=== PATIENT | female | born 1995 | race Caucasian/White ===

== ENCOUNTER 2020-04-07 04:00 | Emergency (ER) | payer OTHER ==
[~2020-04-07] VITALS: Ht 160 cm; Wt 63.0 kg
[2020-04-07 04:40] LABS: BASOPHILS % (AUTO) 0 % (0-10); EOSINOPHILS # (AUTO) 0.1 10^3/uL (0.0-0.3); EOSINOPHILS % (AUTO) 0 % (0-10); HEMATOCRIT 38 % (35-52); HEMOGLOBIN 12.5 G/DL (11.5-16.0); LYMPHOCYTES # (AUTO) 1.3 X 10^3 (1.0-4.0); LYMPHOCYTES % (AUTO) 9 % (12-44); MEAN CORPUSCULAR HEMOGLOBIN 30 PG (25-34); MEAN CORPUSCULAR HGB CONC 33 G/DL (32-36); MEAN CORPUSCULAR VOLUME 90 FL (80-99); MEAN PLATELET VOLUME 10.4 FL (7.4-10.4); MONOCYTES # (AUTO) 0.7 X 10^3 (0.0-1.0); MONOCYTES % (AUTO) 5 % (0-12); NEUTROPHILS # (AUTO) 12.3 X 10^3 (1.8-7.8); NEUTROPHILS % (AUTO) 85 % (42-75); PLATELET COUNT 264 10^3/uL (130-400); RED CELL DISTRIBUTION WIDTH 11.9 % (10.0-14.5); WHITE BLOOD COUNT 14.4 10^3/uL (4.3-11.0)
[2020-04-07 04:41] LABS: BILIRUBIN,URINE NEGATIVE (NEGATIVE); CLARITY,URINE CLEAR; COLOR,URINE YELLOW; GLUCOSE, URINE (UA) NEGATIVE (NEGATIVE); KETONES,URINE NEGATIVE (NEGATIVE); LEUKOCYTE ESTERASE ,URINE NEGATIVE (NEGATIVE); NITRITE,URINE NEGATIVE (NEGATIVE); PROTEIN,URINE NEGATIVE (NEGATIVE)
[2020-04-07 04:48] LABS: BACTERIA,URINE TRACE /HPF
[2020-04-07 04:51] LABS: ALBUMIN 4.3 GM/DL (3.2-4.5); CHLORIDE 105 MMOL/L (98-107); POTASSIUM 3.4 MMOL/L (3.6-5.0); SODIUM 137 MMOL/L (135-145)
[2020-04-07 04:52] LABS: CALCIUM 9.3 MG/DL (8.5-10.1)
[2020-04-07 04:54] LABS: GLUCOSE 94 MG/DL (70-105); TOTAL PROTEIN 7.1 GM/DL (6.4-8.2)
[2020-04-07 04:55] LABS: BILIRUBIN,TOTAL 0.5 MG/DL (0.1-1.0); CARBON DIOXIDE 21 MMOL/L (21-32)
[2020-04-07 04:57] LABS: ALKALINE PHOSPHATASE 62 U/L (40-136); CREATININE SERUM 0.73 MG/DL (0.60-1.30); GFR ESTIMATED > 60
[2020-04-07 04:59] LABS: BUN/CREATININE RATIO 14
[2020-04-07 05:00] LABS: ALANINE AMINOTRANSFERASE 13 U/L (0-55)
--- NOTE | 2020-04-07 05:51 | ED Abdominal Pain ---
General Chief Complaint: Abdominal/GI Problems Stated Complaint: RLQ PAIN Nursing Triage Note: RLQ ABDOMINAL PAIN Sepsis Screen: No Definite Risk Source of Information: Patient Exam Limitations: No Limitations (POLA RODRIGUEZ MED STUDENT) History of Present Illness Date Seen by Provider: Apr 07, 2020 Time Seen by Provider: 04:08 Initial Comments Mrs. Steiner is a 24 year old female who presented to the emergency department with complaints of right lower quadrant abdominal pain that began around 01:15 this morning, about 3 hours before arrival and was sharp at that time. She states she was sleeping and woke up to RLQ pain that is improving. She complains of right sided chest pain at that time but states it was likely her anxiety. She proceeded to shower to help alleviate the pain with no relief. She describes the pain as a dull pain in the RLQ with no radiation. She denies any urinary symptoms, vaginal discharge/irritation, or vomiting. She does admit to some nausea. Her last bowel movement was yesterday and soft. LMP began 04/02/20. She states she had similar pain previously and was diagnosed with a kidney stone in 2016, she was treated with IV fluids and passed the stone with no intervention. She also has a personal history of ovarian cysts 5-6 years ago. She states she does not have a PCP in the area as she usually is seen in the [facility] at [facility]. Timing/Duration: 1-3 Hours Severity/Quality: Moderate, Dull Location: RLQ Radiation: No Radiation Activities at Onset: Sleeping Associated Symptoms: Fever/Chills (chills); No Headache; Nausea/Vomiting (nausea); No Shortness of Air (POLA RODRIGUEZ MED STUDENT) Allergies and Home Medications Allergies Coded Allergies: No Known Drug Allergies (Unverified , 04/07/20) Home Medications No Active Prescriptions or Reported Meds Patient Home Medication List Home Medication List Reviewed: Yes (POLA RODRIGUEZ MED STUDENT) Review of Systems Review of Systems Constitutional: chills; No fever EENTM: No Symptoms Reported Respiratory: No Symptoms Reported Cardiovascular: Chest Pain Gastrointestinal: Abdominal Pain; Denies Constipated, Denies Diarrhea; Nausea; Denies Vomiting Genitourinary: No Symptoms Reported Musculoskeletal: no symptoms reported Skin: no symptoms reported Psychiatric/Neurological: No Symptoms Reported Endocrine: No Symptoms Reported (POLA RODRIGUEZ MED STUDENT) Past Ayoucxg-Qtvwwi-Owrejl Hx Patient Social History Alcohol Use: Rarely Uses Recreational Drug Use: No Smoking Status: Never a Smoker 2nd Hand Smoke Exposure: No Recent Foreign Travel: No Contact w/Someone Who Travel: No Recent Infectious Disease Expo: No Recent Hopitalizations: No Physical Abuse: No Sexual Abuse: No Mistreated: No Fear: No (POLA RODRIGUEZ MED STUDENT) Immunizations Up To Date Tetanus Booster (TDap): Unknown (POLA RODRIGUEZ MED STUDENT) Seasonal Allergies Seasonal Allergies: No (POLA RODRIGUEZ MED STUDENT) Past Medical History Surgeries: Yes Tonsillectomy Respiratory: No Cardiac: No Neurological: No : No Last Menstrual Period: Apr 02, 2020 Reproductive Disorders: Yes (dysmenorrhea, ovarian cyst) Genitourinary: No Gastrointestinal: No Musculoskeletal: No Endocrine: No HEENT: No Cancer: No Psychosocial: No Integumentary: No Blood Disorders: No (POLA RODRGIUEZ MED STUDENT) Physical Exam Vital Signs Vital Signs - First Documented 04/07/20 04:05 Temp 36.6 Pulse 113 Resp 18 B/P (MAP) 118/86 (97) Pulse Ox 99 O2 Delivery Room Air (SAUD MAKI MD) Vital Signs Capillary Refill : Less Than 3 Seconds (POLA RODRIGUEZ MED STUDENT) Height/Weight/BMI Height: '" Weight: lbs. oz. kg; 24.00 BMI Method: General Appearance: WD/WN, no apparent distress Respiratory: chest non-tender, lungs clear, normal breath sounds, no respiratory distress, no accessory muscle use Cardiovascular: regular rate, rhythm, no murmur Peripheral Pulses: 2+ Radial Pulses (R), 2+ Radial Pulses (L) Gastrointestinal: normal bowel sounds, soft, no organomegaly; No guarding, No rebound; tenderness (mild at RLQ and suprapubic), other (negative heel tap, negative rovsing, negative straight lef test, mildly positve psoas/iliopsoas sign) Extremities: normal range of motion Neurologic/Psychiatric: alert, normal mood/affect, oriented x 3 Skin: normal color, warm/dry (POLA RODRIGUEZ MED STUDENT) Progress/Results/Core Measures Results/Orders Lab Results Laboratory Tests Test 04/07/20 04:15 04/07/20 04:35 Range/Units Urine Color YELLOW Urine Clarity CLEAR Urine pH 6.0 5-9 Urine Specific [place] 1.020 1.016-1.022 Urine Protein NEGATIVE NEGATIVE Urine Glucose (UA) NEGATIVE NEGATIVE Urine Ketones NEGATIVE NEGATIVE Urine Nitrite NEGATIVE NEGATIVE Urine Bilirubin NEGATIVE NEGATIVE Urine Urobilinogen 0.2 < = 1.0 MG/DL Urine Leukocyte Esterase NEGATIVE NEGATIVE Urine RBC (Auto) 1+ H NEGATIVE Urine RBC NONE /HPF Urine WBC NONE /HPF Urine Squamous Epithelial Cells 5-10 /HPF Urine Crystals NONE /LPF Urine Bacteria TRACE /HPF Urine Casts NONE /LPF Urine Mucus NEGATIVE /LPF Urine Culture Indicated NO White Blood Count 14.4 H 4.3-11.0 10^3/uL Red Blood Count 4.19 L 4.35-5.85 10^6/uL Hemoglobin 12.5 11.5-16.0 G/DL Hematocrit 38 35-52 % Mean Corpuscular Volume 90 80-99 FL Mean Corpuscular Hemoglobin 30 25-34 PG Mean Corpuscular Hemoglobin Concent 33 32-36 G/DL Red Cell Distribution Width 11.9 10.0-14.5 % Platelet Count 264 130-400 10^3/uL Mean Platelet Volume 10.4 7.4-10.4 FL Neutrophils (%) (Auto) 85 H 42-75 % Lymphocytes (%) (Auto) 9 L 12-44 % Monocytes (%) (Auto) 5 0-12 % Eosinophils (%) (Auto) 0 0-10 % Basophils (%) (Auto) 0 0-10 % Neutrophils # (Auto) 12.3 H 1.8-7.8 X 10^3 Lymphocytes # (Auto) 1.3 1.0-4.0 X 10^3 Monocytes # (Auto) 0.7 0.0-1.0 X 10^3 Eosinophils # (Auto) 0.1 0.0-0.3 10^3/uL Basophils # (Auto) 0.0 0.0-0.1 10^3/uL Sodium Level 137 135-145 MMOL/L Potassium Level 3.4 L 3.6-5.0 MMOL/L Chloride Level 105 98-107 MMOL/L Carbon Dioxide Level 21 21-32 MMOL/L Anion Gap 11 5-14 MMOL/L Blood Urea Nitrogen 10 7-18 MG/DL Creatinine 0.73 0.60-1.30 MG/DL Estimat Glomerular Filtration Rate > 60 BUN/Creatinine Ratio 14 Glucose Level 94 70-105 MG/DL Calcium Level 9.3 8.5-10.1 MG/DL Corrected Calcium 9.1 8.5-10.1 MG/DL Total Bilirubin 0.5 0.1-1.0 MG/DL Aspartate Amino Transf (AST/SGOT) 23 5-34 U/L Alanine Aminotransferase (ALT/SGPT) 13 0-55 U/L Alkaline Phosphatase 62 40-136 U/L C-Reactive Protein High Sensitivity 0.14 0.00-0.50 MG/DL Total Protein 7.1 6.4-8.2 GM/DL Albumin 4.3 3.2-4.5 GM/DL Serum Test, Qualitative NEGATIVE NEGATIVE (SAUD MAKI MD) My Orders Orders - SAUD MAKI MD Ua Culture If Indicated (04/07/20 04:24) Cbc With Automated Diff (04/07/20 04:28) Comprehensive Metabolic Panel (04/07/20 04:28) Hs C Reactive Protein (04/07/20 04:28) Hcg,Qualitative Serum (04/07/20 04:28) Ed Iv/Invasive Line Start (04/07/20 04:28) (SAUD MAKI MD) Vital Signs/I&O 04/07/20 04/07/20 04:05 06:34 Temp 36.6 36.5 Pulse 113 98 Resp 18 16 B/P (MAP) 118/86 (97) 108/75 (97) Pulse Ox 99 100 O2 Delivery Room Air Room Air (SAUD MAKI MD) Blood Pressure Mean: 97 Progress Progress Note : Progress Note Patient's pain seemed to be improving without interventions. Her pain started abruptly and gradually was decreasing. Physical exam showed minimal peritoneal signs. We discussed the risks and benefits of CT scan. Patient wishes to wait and observe her symptoms closely. She commits to returning if symptoms worsen. (SAUD MAKI MD) Departure Impression Primary Impression: Right lower quadrant pain Additional Impression: Nausea Disposition: 01 HOME, SELF-CARE Condition: Improved Departure-Patient Inst. Decision time for Depature: 06:08 (SAUD MAKI MD) Referrals: NO,LOCAL PHYSICIAN (PCP/Family) Primary Care Physician Patient Instructions: Acute Abdomen (Belly Pain), Adult (DC) Add. Discharge Instructions: Start with clear liquids and gradually advance your diet as tolerated. You may use ibuprofen and/or Tylenol (acetaminophen) for pain. Return to the emergency room if you have escalating pain or other worsening symptoms such as vomiting, fever, etc. Call if you have questions or concerns. All discharge instructions reviewed with patient and/or family. Voiced understanding. Scripts No Active Prescriptions or Reported Meds This patient was interviewed and examined by me personally along with Pola Rodriguez MS4. I agree with MS 4 history, physical, assessment, and documentation. My examination is as follows: Gen.: Alert, no acute distress, walks gingerly from the restroom to the exam ta ble HEENT: Normocephalic and atraumatic Heart: Regular rate and rhythm without murmur Lungs: Clear to auscultation bilaterally with normal effort Abdomen: Mild tenderness in the right lower quadrant, negative Rovsing, negative rebound Extremities: Normal to inspection Neuro psych: Alert, oriented, no focal deficits, normal mood and affect Risks and benefits of CT imaging to evaluate for appendicitis or other intra- abdominal or pelvic pathology was discussed. Since patient is improving and symptoms are not as intense at this time, she would like to observe watchful waiting at home. Return precautions discussed. (SAUD MAKI MD) Copy Copies To 1: REE DAMON MD, [place],MED STUDENT Apr 07, 2020 05:51 SAUD MAKI MD Apr 07, 2020 06:09
[2020-04-07 06:34] VITALS: BP 108/75
== END 2020-04-07 06:36 | disposition home or self-care (01) ==
LOC: ER 04:03
DX: R10.31 Right lower quadrant pain (principal); R11.0 Nausea
CPT/HCPCS: 36415; 80053; 81000; 84703; 85025; 86141

== ENCOUNTER 2021-08-26 04:12 | Day surgery (SDC) | payer BC, OTHER ==
[2021-08-26] VITALS (10 sets, daily range): BP systolic 100–112; BP diastolic 60–79
[~2021-08-26] VITALS: Ht 160 cm; Wt 59.0 kg
[2021-08-26 04:33] LABS: BILIRUBIN,URINE NEGATIVE (NEGATIVE); CLARITY,URINE CLEAR; COLOR,URINE YELLOW; GLUCOSE, URINE (UA) NEGATIVE (NEGATIVE); KETONES,URINE NEGATIVE (NEGATIVE); LEUKOCYTE ESTERASE ,URINE NEGATIVE (NEGATIVE); NITRITE,URINE NEGATIVE (NEGATIVE); PROTEIN,URINE NEGATIVE (NEGATIVE)
--- NOTE | 2021-08-26 04:36 | ED Abdominal Pain ---
General Chief Complaint: Abdominal/GI Problems Stated Complaint: RT SIDE PAIN Source of Information: Patient History of Present Illness Date Seen by Provider: Aug 26, 2021 Time Seen by Provider: 04:25 Initial Comments PT ARRIVES VIA POV FROM HOME PT STATES AROUND 2130 TONIGHT, WHILE SITTING AT HER DESK, SHE BEGAN HAVING RIGHT LOWER ABDOMINAL PAIN THEN PAIN WENT UP HER RIGHT SIDE, THEN TO MID LOWER ABDOMEN, THEN ALL OVER HER ABDOMEN AND NOW IS ON HER RIGHT SIDE UNDER HER RIGHT RIBS AND IN RLQ NOTHING WORSENS OR IMPROVES PAIN,BUT HAS NOT TAKEN ANYTHING FOR PAIN RATES PAIN 8-9 EARLIER, IS 5-6 NOW MILD NAUSEA, NO VOMITING HAD NORMAL BM AT 10 AM YESTERDAY NO FEVER NO URINARY SYMPTOMS HAS HISTORY OF KIDNEY STONES AND OVARIAN CYSTS NO PRIOR SURGERIES LMP 1 WEEK AGO. NORMAL. NO CONTROL PT HAS NOT RECEIVED COVID-19 VACCINE PCP: NONE Allergies and Home Medications Allergies Coded Allergies: No Known Drug Allergies (Unverified , 04/07/20) Patient Home Medication List No Active Prescriptions or Reported Meds Review of Systems Review of Systems Constitutional: no symptoms reported Respiratory: No Symptoms Reported Cardiovascular: No Symptoms Reported Gastrointestinal: See HPI, Abdominal Pain; Denies Constipated, Denies Diarrhea; Nausea; Denies Vomiting Genitourinary: No Symptoms Reported Musculoskeletal: no symptoms reported; No back pain Skin: no symptoms reported Psychiatric/Neurological: No Symptoms Reported Endocrine: No Symptoms Reported Hematologic/Lymphatic: No Symptoms Reported Past Jtghiyz-Agdnfg-Yiicrg Hx Patient Social History Tobacco Use?: No Substance use?: No Alcohol Use?: No Immunizations Up To Date Tetanus Booster (TDap): Unknown Seasonal Allergies Seasonal Allergies: No Past Medical History Surgeries: Yes Tonsillectomy Respiratory: No Cardiac: No Neurological: No Reproductive Disorders: Yes (dysmenorrhea, ovarian cyst) Female Reproductive Disorders: Menstrual Problems, Ovarian Cyst Genitourinary: Yes Kidney Stones Gastrointestinal: No Musculoskeletal: No Endocrine: No HEENT: No Cancer: No Psychosocial: No Integumentary: No Blood Disorders: No Physical Exam Vital Signs Vital Signs - First Documented 08/26/21 04:25 Temp 36.8 Pulse 130 Resp 16 B/P (MAP) 119/81 (94) Pulse Ox 99 O2 Delivery Room Air Capillary Refill : Height/Weight/BMI Height: '" Weight: lbs. oz. kg; 24.00 BMI Method: General Appearance: WD/WN, no apparent distress, other (WALKS UPRIGHT AND MOVES WITHOUT DIFFICULTY) Neck: normal inspection Respiratory: normal breath sounds, no respiratory distress, no accessory muscle use Cardiovascular: no murmur, tachycardia (HR 130 ON ARRIVAL) Gastrointestinal: normal bowel sounds, soft, no organomegaly, no pulsatile mass; No distended, No guarding, No rebound; tenderness (VERY SLIGHT TENDERNESS IN RLQ AND SUPRAPUBIC AREA); No hernia, No mass Extremities: normal inspection Back: normal inspection, no CVA tenderness Neurologic/Psychiatric: medical pathologist II-XII nml as tested, no motor/sensory deficits, alert, normal mood/affect, oriented x 3 Skin: normal color, warm/dry; No rash Progress/Results/Core Measures Results/Orders Lab Results Laboratory Tests Test 08/26/21 04:25 08/26/21 04:35 Range/Units Urine Color YELLOW Urine Clarity CLEAR Urine pH 7.0 5-9 Urine Specific [place] 1.020 1.016-1.022 Urine Protein NEGATIVE NEGATIVE Urine Glucose (UA) NEGATIVE NEGATIVE Urine Ketones NEGATIVE NEGATIVE Urine Nitrite NEGATIVE NEGATIVE Urine Bilirubin NEGATIVE NEGATIVE Urine Urobilinogen 0.2 < = 1.0 MG/DL Urine Leukocyte Esterase NEGATIVE NEGATIVE Urine RBC (Auto) TRACE-I H NEGATIVE Urine RBC NONE /HPF Urine WBC NONE /HPF Urine Squamous Epithelial Cells 2-5 /HPF Urine Crystals NONE /LPF Urine Bacteria NEGATIVE /HPF Urine Casts NONE /LPF Urine Mucus SMALL H /LPF Urine Culture Indicated NO White Blood Count 12.1 H 4.3-11.0 10^3/uL Red Blood Count 4.34 3.80-5.11 10^6/uL Hemoglobin 12.9 11.5-16.0 g/dL Hematocrit 39 35-52 % Mean Corpuscular Volume 90 80-99 fL Mean Corpuscular Hemoglobin 30 25-34 pg Mean Corpuscular Hemoglobin Concent 33 32-36 g/dL Red Cell Distribution Width 11.6 10.0-14.5 % Platelet Count 294 130-400 10^3/uL Mean Platelet Volume 10.6 9.0-12.2 fL Immature Granulocyte % (Auto) 0 % Neutrophils (%) (Auto) 75 42-75 % Lymphocytes (%) (Auto) 19 12-44 % Monocytes (%) (Auto) 5 0-12 % Eosinophils (%) (Auto) 1 0-10 % Basophils (%) (Auto) 0 0-10 % Neutrophils # (Auto) 9.0 H 1.8-7.8 10^3/uL Lymphocytes # (Auto) 2.3 1.0-4.0 10^3/uL Monocytes # (Auto) 0.6 0.0-1.0 10^3/uL Eosinophils # (Auto) 0.1 0.0-0.3 10^3/uL Basophils # (Auto) 0.0 0.0-0.1 10^3/uL Immature Granulocyte # (Auto) 0.0 0.0-0.1 10^3/uL Sodium Level 140 135-145 MMOL/L Potassium Level 3.5 L 3.6-5.0 MMOL/L Chloride Level 105 98-107 MMOL/L Carbon Dioxide Level 22 21-32 MMOL/L Anion Gap 13 5-14 MMOL/L Blood Urea Nitrogen 10 7-18 MG/DL Creatinine 0.74 0.60-1.30 MG/DL Estimat Glomerular Filtration Rate 96 BUN/Creatinine Ratio 14 Glucose Level 103 70-105 MG/DL Calcium Level 9.1 8.5-10.1 MG/DL Corrected Calcium 8.9 8.5-10.1 MG/DL Total Bilirubin 0.9 0.1-1.0 MG/DL Aspartate Amino Transf (AST/SGOT) 19 5-34 U/L Alanine Aminotransferase (ALT/SGPT) 9 0-55 U/L Alkaline Phosphatase 63 40-136 U/L Total Protein 7.3 6.4-8.2 GM/DL Albumin 4.3 3.2-4.5 GM/DL My Orders Orders - LONA WADSWORTH DO Ed Iv/Invasive Line Start (08/26/21 04:24) Urine Bedside (08/26/21 04:24) Cbc With Automated Diff (08/26/21 04:24) Comprehensive Metabolic Panel (08/26/21 04:24) Ua Culture If Indicated (08/26/21 04:24) Ct Abd/Pelvis Wo(Kidney Stone) (08/26/21 04:45) Abdomen/Kub 1view (08/26/21 04:45) Vital Signs/I&O 08/26/21 04:25 Temp 36.8 Pulse 130 Resp 16 B/P (MAP) 119/81 (94) Pulse Ox 99 O2 Delivery Room Air Progress Progress Note : Progress Note HR DOWN TO 80'S SHORTLY AFTER ARRIVAL UNEVENTFUL ER STAY. LAST FOOD INTAKE--1615 YESTERDAY AFTERNOON. HAD 20 OZ OF WATER AT 2200 ON 08/25/21 Diagnostic Imaging Comments KUB--NO ACUTE PROCESS, PENDING RADIOLOGIST REVIEW CT ABDOMEN/PELVIS--PER [facility] VIA FAX AT 5622 ENLARGED APPENDIX AT 8MM DIAMETER, WITH MILD SURROUNDING INFLAMMATORY STRANDING--SUSPICIOUS FOR EARLY APPENDICITIS Reviewed: Reviewed by Me Departure Communication (Admissions) [id number]--SPOKE WITH DR. CHAPA, SURGEON. WILL BE IN TO SEE PT. Impression Primary Impression: RLQ PAIN--EARLY APPENDICITIS Disposition: ADMITTED INPATIENT Condition: Stable Admissions Decision to Admit Reason: Admit from ER (General) Decision to Admit/Date: Aug 26, 2021 Time/Decision to Admit Time: 05:50 Departure-Patient Inst. Referrals: NO,LOCAL PHYSICIAN (PCP/Family) Primary Care Physician Scripts No Active Prescriptions or Reported Meds LONA WADSWORTH DO Aug 26, 2021 04:36
[2021-08-26 04:41] LABS: BACTERIA,URINE NEGATIVE /HPF
[2021-08-26 04:44] LABS: BASOPHILS % (AUTO) 0 % (0-10); EOSINOPHILS # (AUTO) 0.1 10^3/uL (0.0-0.3); EOSINOPHILS % (AUTO) 1 % (0-10); HEMATOCRIT 39 % (35-52); HEMOGLOBIN 12.9 g/dL (11.5-16.0); LYMPHOCYTES # (AUTO) 2.3 10^3/uL (1.0-4.0); LYMPHOCYTES % (AUTO) 19 % (12-44); MEAN CORPUSCULAR HEMOGLOBIN 30 pg (25-34); MEAN CORPUSCULAR HGB CONC 33 g/dL (32-36); MEAN CORPUSCULAR VOLUME 90 fL (80-99); MEAN PLATELET VOLUME 10.6 fL (9.0-12.2); MONOCYTES # (AUTO) 0.6 10^3/uL (0.0-1.0); MONOCYTES % (AUTO) 5 % (0-12); NEUTROPHILS % (AUTO) 75 % (42-75); PLATELET COUNT 294 10^3/uL (130-400); WHITE BLOOD COUNT 12.1 10^3/uL (4.3-11.0)
[2021-08-26 05:07] LABS: ALBUMIN 4.3 GM/DL (3.2-4.5); BILIRUBIN,TOTAL 0.9 MG/DL (0.1-1.0); CALCIUM 9.1 MG/DL (8.5-10.1); CREATININE SERUM 0.74 MG/DL (0.60-1.30); POTASSIUM 3.5 MMOL/L (3.6-5.0); TOTAL PROTEIN 7.3 GM/DL (6.4-8.2)
--- NOTE | 2021-08-26 05:54 | Diagnostic Imaging Report ---
ABDOMEN/KUB 1VIEW INDICATION: Abdominal pain COMPARISON: None available. TECHNIQUE: Single supine view of the abdomen FINDINGS: Nonobstructive bowel gas pattern. No features of free intraperitoneal air. No radiopaque urinary tract calculi are appreciated. Normal regional skeleton. IMPRESSION: No abnormality by radiography. Dictated by: Dictated on workstation # [id number]
--- NOTE | 2021-08-26 05:57 | Diagnostic Imaging Report ---
CT ABD/PELVIS WO(KIDNEY STONE) TECHNIQUE: Unenhanced CT imaging of the abdomen and pelvis was performed. 2-D reformats are created and submitted for interpretation. Automatic exposure controls were utilized to optimize patient dose. INDICATION: Flank pain COMPARISON: None available. FINDINGS: Evaluation of the abdominal viscera is mildly limited without contrast. Lower chest: The lung bases are clear. No pericardial or pleural effusion. Peritoneum: No free intraperitoneal air or fluid. Liver and biliary system: Unenhanced liver is normal. The gallbladder is normal. No biliary duct dilation. Spleen and Pancreas: Spleen is normal. Unenhanced pancreas is grossly normal. Adrenals: Normal. tract: No renal or ureteral calculi. No obstructive uropathy. Urinary bladder is decompressed. Uterus and ovaries are unremarkable. GI tract: Stomach is partially filled with fluid. No bowel obstruction. No pericolonic inflammatory changes. Dilated appendix measuring 8 mm has a small amount of surrounding induration in the periappendiceal fat. No abscess. Vasculature and Lymph nodes: Normal caliber aorta. No abdominal or pelvic lymphadenopathy. Musculoskeletal: No concerning osseous lesion. IMPRESSION: 1. Acute appendicitis without perforation or abscess. 2. No urinary tract calculi. 3. Findings are in agreement with the preliminary report. Dictated by: Dictated on workstation # [id number]
[2021-08-26] MEDS ORDERED: LACTATED RINGERS 1,000 ML IV ONE (06:00)
[2021-08-26] MEDS ORDERED: fentaNYL INJ 100 MCG/2 ML AMP ONE (06:53)
[2021-08-26] MEDS ORDERED: MIDAZOLAM 2 MG/2 ML (VERSED) VIAL ONE (06:53)
[2021-08-26] MEDS ORDERED: LACTATED RINGERS 1,000 ML IV PRN (07:00)
[2021-08-26] MEDS ORDERED: LIDOCAINE/EPI 1%-1:100,000 (XYLOCAINE) 20ML ONE (07:04)
--- NOTE | 2021-08-26 07:14 | History & Physical-Surgical ---
History of Present Illness History of Present Illness Reason for visit/HPI CC: RLQ abd pain Seen and evaluated in ED. Patient is a 26 year old female that began having rlq abd pain aobut 930 last night. Constant dull ache now. Moderate to severe. No radiation of pain. Having nausea no emesis. Movement makes worse. Laying still better. Denies fever sweats chills shortness of breath or chest pain. Patient with ct scan consistent with acute appendicitis. Date of Admission T Date Seen by a Provider: Aug 26, 2021 Time Seen by a Provider: 06:48 I consulted on this patient on 08/26/21 07:09 Attending Physician Hayley Barragan DO Admitting Physician No,Local Physician Consult Allergies and Home Medications Allergies Coded Allergies: No Known Drug Allergies (Unverified , 04/07/20) Patient Home Medication List Home Medication List Reviewed: Yes No Active Prescriptions or Reported Meds Past Kvxomhx-Eqtqgg-Gzgqdq Hx Patient Social History Smoking Status: Never a Smoker 2nd Hand Smoke Exposure: No Recent Hopitalizations: No Alcohol Use?: No Have you traveled recently?: No Immunizations Up To Date Tetanus Booster (TDap): Unknown Seasonal Allergies Seasonal Allergies: No Surgeries History of Surgeries: Yes Surgeries: Tonsillectomy Respiratory History of Respiratory Disorde: No Cardiovascular History of Cardiac Disorders: No Neurological History of Neurological Disord: No Reproductive System Hx Reproductive Disorders: Yes (dysmenorrhea, ovarian cyst) Female Reproductive Disorders: Menstrual Problems, Ovarian Cyst Genitourinary History of Genitourinary Disor: Yes Genitourinary Disorders: Kidney Stones Gastrointestinal History of Gastrointestinal Di: No Musculoskeletal History of Musculoskeletal Dis: No Endocrine History of Endocrine Disorders: No HEENT History of HEENT Disorders: No Cancer History of Cancer: No Psychosocial History of Psychiatric Problem: No Integumentary History of Skin or Integumenta: No Blood Transfusions History of Blood Disorders: No Reviewed Nursing Assessment Reviewed/Agree w Nursing PMH: Yes Family Medical History Significant Family History: No Pertinent Family Hx Review of Systems Constitutional: No chills, No diaphoresis EENTM: No blurred vision, No mouth swelling Respiratory: No cough, No dyspnea on exertion Cardiovascular: No chest pain, No palpitations Gastrointestinal: abdominal pain (RLQ), nausea Genitourinary: No dysuria, No frequency Musculoskeletal: No back pain, No joint pain Skin: No change in color, No change in hair/nails Psychiatric/Neurological: Denies Anxiety, Denies Depressed, Denies Emotional Problems All Other Systems Reviewed Negative Unless Noted: Yes (Negative excepted noted.) Physical Exam Vital Signs Vital Signs - First Documented 08/26/21 04:25 Temp 36.8 Pulse 130 Resp 16 B/P (MAP) 119/81 (94) Pulse Ox 99 O2 Delivery Room Air Capillary Refill : Less Than 3 Seconds Height, Weight, BMI Height: '" Weight: lbs. oz. kg; 23.00 BMI Method: General Appearance: No Apparent Distress, WD/WN HEENT: PERRL/EOMI, Normal ENT Inspection Neck: Normal Inspection, Non Tender Respiratory: Chest Non Tender, No Accessory Muscle Use, No Respiratory Distress Cardiovascular: Regular Rate, Rhythm, No JVD Gastrointestinal: Non Tender, Soft, Tenderness (rlq) Rectal: Deferred Back: No CVA Tenderness, No Vertebral Tenderness Extremity: Normal Inspection, Non Tender Neurologic/Psychiatric: Alert, Oriented x3, No Motor/Sensory Deficits, Normal Mood/Affect Skin: Normal Color, Warm/Dry Lymphatic: No Adenopathy Data Review Labs Laboratory Tests 08/26/21 04:25: Urine Color YELLOW, Urine Clarity CLEAR, Urine pH 7.0, Urine Specific [place] 1.020, Urine Protein NEGATIVE, Urine Glucose (UA) NEGATIVE, Urine Ketones NEGATIVE, Urine Nitrite NEGATIVE, Urine Bilirubin NEGATIVE, Urine Urobilinogen 0.2, Urine Leukocyte Esterase NEGATIVE, Urine RBC (Auto) TRACE-IH, Urine RBC NONE, Urine WBC NONE, Urine Squamous Epithelial Cells 2-5, Urine Crystals NONE, Urine Bacteria NEGATIVE, Urine Casts NONE, Urine Mucus SMALLH, Urine Culture Indicated NO 08/26/21 04:35: White Blood Count 12.1H, Red Blood Count 4.34, Hemoglobin 12.9, Hematocrit 39, Mean Corpuscular Volume 90, Mean Corpuscular Hemoglobin 30, Mean Corpuscular Hemoglobin Concent 33, Red Cell Distribution Width 11.6, Platelet Count 294, Mean Platelet Volume 10.6, Immature Granulocyte % (Auto) 0, Neutrophils (%) (Auto) 75, Lymphocytes (%) (Auto) 19, Monocytes (%) (Auto) 5, Eosinophils (%) (Auto) 1, Basophils (%) (Auto) 0, Neutrophils # (Auto) 9.0H, Lymphocytes # (Auto) 2.3, Monocytes # (Auto) 0.6, Eosinophils # (Auto) 0.1, Basophils # (Auto) 0.0, Immature Granulocyte # (Auto) 0.0, Sodium Level 140, Potassium Level 3.5L, Chloride Level 105, Carbon Dioxide Level 22, Anion Gap 13, Blood Urea Nitrogen 10, Creatinine 0.74, Estimat Glomerular Filtration Rate 96, BUN/Creatinine Ratio 14, Glucose Level 103, Calcium Level 9.1, Corrected Calcium 8.9, Total Bilirubin 0.9, Aspartate Amino Transf (AST/SGOT) 19, Alanine Aminotransferase (ALT/SGPT) 9, Alkaline Phosphatase 63, Total Protein 7.3, Albumin 4.3 Assessment/Plan Assessment/Plan Admission Diagonsis rlq abdominal pain acute appendicitis Admission Status: Other (Same Day Surgery) Assessment/Plan rlq abdominal pain acute appendicitis discussed risks and benefits of laparoscopic appendectomy she understands and wishes to proceed. NPO to or HAYLEY BARRAGAN DO Aug 26, 2021 07:14
[2021-08-26] MEDS ORDERED: metroNIDAZOLE 500MG/100ML IVPB 100 ML ONE (07:25)
[2021-08-26] MEDS ORDERED: ceFAZolin INJECTION 1,000 MG ONE (07:25)
[2021-08-26] MEDS ORDERED: ceFAZolin INJECTION 1,000 MG in WATER (STERILE) FOR INJECTION 10 ML IV ONE (07:30)
[2021-08-26] MEDS ORDERED: metroNIDAZOLE 500MG/100ML IVPB 100 ML IV ONE (07:30)
[2021-08-26] MEDS ORDERED: LIDOCAINE PF 2% 5 ML (XYLOCAINE) VIAL ONE (07:40)
[2021-08-26] MEDS ORDERED: SEVOFLURANE (ULTANE) 15 ML INHAL SOLN ONE (07:40)
[2021-08-26] MEDS ORDERED: ROCURONIUM 10 MG/ML 5 ML SYRINGE IV ONE (07:40)
[2021-08-26] MEDS ORDERED: ONDANSETRON 4 MG/2 ML (SDV) Z0FRAN ONE (07:40)
[2021-08-26] MEDS ORDERED: NEOSTIGMINE 3 MG/3 ML VIAL ONE (07:50)
[2021-08-26] MEDS ORDERED: GLYCOPYRROLATE 0.2 MG/ML (ROBINUL) 2 ML VIAL ONE (07:50)
[2021-08-26] MEDS ORDERED: PHENYLEPHRINE 100 MCG/ML 10 ML (ANESTHESIA) SYR ONE (07:53)
[2021-08-26] MEDS ORDERED: KETOROLAC 30 MG/ML VIAL ONE ×2 (08:07→08:08)
[2021-08-26] MEDS ORDERED: DOCU-143 PO (08:10)
[2021-08-26] MEDS ORDERED: ACHD5005 PO (08:10)
--- NOTE | 2021-08-26 08:11 | Discharge Inst-Simple/Standard ---
Discharge Inst-Standard Discharge Medications New, Converted or Re-Newed RX: Transmitted to Pharmacy Patient Instructions/Follow Up Plan of Care/Instructions/FU: 2 weeks Yung Activity as Tolerated: No Discharge Diet: Regular Diet Other Inst to Patient Follow up Appt: Make appointment for 2 week. Instructions: No lifting greater than 10 pounds. No strenuous activity. May shower in 24 hours, no tub bath or soaking. Use incentive spirometer at home as directed. No Smoking Skin/Wound Care: You have special glue over your incision that will fall off on it's own. Symptoms to Report: Appetite Changes, Extremity Discoloration, Numbness/Tingling, Swelling Increased, Bleeding Excessive, Eyesight Changes, Pain Increased, Urine Color Change, Constipation(Persistent), Fever over 101 degree F, Pain/Pressure in chest, Urinating Difficulty, Cough Up/Vomit Blood, Heart Beat Irreg/Pounding, Pain/Pressure in jaw, Vaginal Bleeding Increase, Cramps in feet or legs, Lightheadedness, Pain/Pressure in shoulder, Diarrhea(Persistent), Memory Changes Suddenly, Questions/Concerns, Weight gain consecutive days, Dizziness/Fainting, Nausea/Vomiting, Shortness of Breath, Weight gain over 2 pounds If questions or concerns contact your physician Or seek help at emergency department. HAYLEY CHAPA DO Aug 26, 2021 08:11
--- NOTE | 2021-08-26 08:14 | Progress Note-Post Operative ---
Post-Operative Progess Note Surgeon (s)/Phone Technician (s) Surgeon HAYLEY CHAPA DO Phone Technician: na Pre-Operative Diagnosis acute appendicitis Post-Operative Diagnosis same Procedure & Operative Findings Date of Procedure 08/26/21 Procedure Performed/Findings 4PROCEDURE: Laparoscopic appendectomy. COMPLICATIONS: None. INDICATIONS: The patient is a 26 year old female who has been having right lower quadrant abdominal pain. Patient's exam consistent with appendicitis. I discussed risk and benefits of laparoscopic appendectomy and all indicated procedures with the possibility being a normal appendix. The patient understands the risks and benefits and wishes to proceed. Consent was signed on the chart. DESCRIPTION OF PROCEDURE: The patient was taken to the operating suite, prepped and draped in a sterile fashion. Timeout was performed. Local anesthetic was infiltrated just above the umbilicus and 11-blade scalpel was used to make a skin incision. Cautery was used to dissect down to the fascia and scored. Kochers were used to grasp and elevate it and the abdomen was then entered. A 0 Vicryl was placed in a [id number] fashion for closure at the end of the case. The balloon trocar was inserted into the abdomen and pneumoperitoneum was achieved. Under direct visualization of the laparoscope, a 5 mm trocar was placed in the suprapubic region and a 5 mm trocar was placed in the left lower quadrant. Appendix was located, Inflamed dilated appendix. The base of the appendix was dissected around. Once at the base an Endo-SRINI 2.5 stapler was then fired across the base of the appendix. The mesoappendix was then divided. It was then placed in an Endobag and removed through the 12 mm trocar site. The abdomen was then irrigated and suctioned. No other pathology noted. The abdomen was then desufflated and the trocars were removed. The 0 Vicryl placed at the beginning of the case was then tied closing the 12 mm fascial defect. The skin was then closed using 4-0 Monocryl in a subcuticular fashion. The abdomen was then washed and dried and Skin Affix was placed over the incisions. The patient tolerated the procedure well without any complications and was taken to the recovery room in stable condition. Anesthesia Type general Estimated Blood Loss Estimated blood loss (mL): minimal Specimens/Packing Specimens Removed appendix HAYLEY CHAPA DO Aug 26, 2021 08:14
[2021-08-26] MEDS ORDERED: ONDANSETRON 4 MG/2 ML (SDV) Z0FRAN IVP PRN (08:45)
[2021-08-26] MEDS ORDERED: HYDROmorphone 2 MG/ML VIAL (DILAUDID) IV ONE (08:45)
[2021-08-26] MEDS ORDERED: HYDROcodone/APAP 5 MG/325 MG (LORTAB) TAB PO ONE (09:30)
[2021-08-26] MEDS ORDERED: HYDROcodone/APAP 5 MG/325 MG (LORTAB) TAB ONE (09:33)
--- NOTE | 2021-08-26 12:56 | Anesthesia-General Post-Op ---
General Patient Condition Mental Status/LOC: Same as Preop Cardiovascular: Satisfactory Nausea/Vomiting: Absent Respiratory: Satisfactory Pain: Controlled Complications: Absent Post Op Complications Complications None Follow Up Care/Instructions Patient Instructions None needed. Anesthesia/Patient Condition Patient Condition Patient is doing well, no complaints, stable vital signs, no apparent adverse anesthesia problems. No complications reported per nursing. [place] home [place] [facility] [place]: Yes JAVI SANCHEZ CRNA Aug 26, 2021 12:56
== END 2021-08-26 11:05 | disposition home or self-care (01) ==
LOC: EDUNIT# 04:12 → ER 04:17 → SDC 05:59
PROVIDERS: ATTEND Surgery
DX: K35.80 Unspecified acute appendicitis (principal)
CPT/HCPCS: 36415; 74018; 74176; 80053; 81000; 84703; 85025

== ENCOUNTER 2022-04-14 19:49 | Emergency (ER) | payer BC ==
[~2022-04-14] VITALS: Ht 157.4 cm; Wt 63.5 kg
[~2022-04-14 19:49] MED LIST: ACHD5005 PO; DOCU-143 PO
--- NOTE | 2022-04-14 20:10 | ED Cough/URI ---
General Chief Complaint: COVID19 Suspect/Confirmed Stated Complaint: CONGESTION, HEADACHE Nursing Triage Note: c/o fever and chills with headache that started around 0900 this am, temp max was 99.0 Source: patient Exam Limitations: no limitations History of Present Illness Date Seen by Provider: Apr 14, 2022 Time Seen by Provider: 20:10 Allergies and Home Medications Allergies Coded Allergies: No Known Drug Allergies (Unverified , 04/07/20) Patient Home Medication List Docusate Sodium (Colace) 100 Mg Capsule, 100 MG PO BID Prescribed by: HAYLEY CHAPA on 08/26/21 0810 Hydrocodone/Acetaminophen (Hydrocodone-Acetamin 5-325 mg) 1 Each Tablet, 1 EACH PO Q4H PRN for PAIN-MODERATE (5-7) Prescribed by: HAYLEY CHAPA on 08/26/2110 Review of Systems Review of Systems Expected Date of Delivery: Nov 13, 2022 Past Ysifttw-Zojxbe-Ixapgf Hx Immunizations Up To Date Tetanus Booster (TDap): Unknown Seasonal Allergies Seasonal Allergies: No Past Medical History Surgery/Hospitalization HX: OVARIAN CYSTS KIDNEY STONES Surgeries: Yes Tonsillectomy Respiratory: No Cardiac: No Neurological: No Expected Date of Delivery: Nov 13, 2022 Reproductive Disorders: Yes (dysmenorrhea, ovarian cyst) Female Reproductive Disorders: Menstrual Problems, Ovarian Cyst Genitourinary: Yes Kidney Stones Gastrointestinal: No Musculoskeletal: No Endocrine: No HEENT: No Cancer: No Psychosocial: No Integumentary: No Blood Disorders: No Family Medical History No Pertinent Family Hx Physical Exam Vital Signs - First Documented 04/14/22 20:02 Temp 38.2 Pulse 114 Resp 18 B/P (MAP) 107/73 (84) Pulse Ox 100 O2 Delivery Room Air Capillary Refill : Height: '" Weight: lbs. oz. kg; 25.00 BMI Method: Progress/Results/Core Measures Suspected Sepsis SIRS Temperature: Pulse: 114 Respiratory Rate: 18 Blood Pressure 107 /73 Mean: 84 Results/Orders Lab Results Laboratory Tests Test 04/14/22 20:14 Range/Units Influenza Type A (RT-PCR) Not Detected Not Detecte Influenza Type B (RT-PCR) Not Detected Not Detecte SARS-CoV-2 RNA (RT-PCR) Detected H Not Detecte My Orders Orders - GEOVANNY REDMOND APRN Covid 19 Inhouse Test (04/14/22 19:55) Influenza A And B By Pcr (04/14/22 19:55) Ns Iv 1000 Ml (Sodium Chloride 0.9%) (04/14/22 20:30) Medications Given in ED Current Medications Medications Dose Ordered Sig/Scot Route Start Time Stop Time Status Last Admin Dose Admin Sodium Chloride 1,000 ml @ 0 mls/hr Q0M ONCE IV 04/14/22 20:30 04/14/22 20:31 DC 04/14/22 20:32 1,000 MLS/HR Vital Signs/I&O 04/14/22 20:02 Temp 38.2 Pulse 114 Resp 18 B/P (MAP) 107/73 (84) Pulse Ox 100 O2 Delivery Room Air Capillary Refill : Blood Pressure Mean: 84 Departure Impression Primary Impression: COVID-19 Disposition: 01 HOME, SELF-CARE Condition: Improved Departure-Patient Inst. Decision time for Depature: 21:06 Referrals: NO,LOCAL PHYSICIAN (PCP/Family) Primary Care Physician Patient Instructions: COVID-19 (DC) Add. Discharge Instructions: Plan: 1. Isolate at home for 5 days, then mask for additional 5 days. 2. Drink plenty of fluids to stay hydrated. 3. May take Tylenol as needed for fever. 4. Return for any new, concerning, or worsening symptoms. All discharge instructions reviewed with patient and/or family. Voiced understanding. GEOVANNY REDMOND [employer] Apr 14, 2022 20:10
[2022-04-14] MEDS ORDERED: NS IV 1000 ML 1,000 ML IV ONE (20:30)
[2022-04-14 21:23] VITALS: BP 106/61
== END 2022-04-14 21:25 | disposition home or self-care (01) ==
LOC: EDUNIT# 19:49 → ER 19:51
DX: U07.1 COVID-19 (principal)
CPT/HCPCS: 87636

== ENCOUNTER 2022-10-13 05:17 | Outpatient (CLI) | payer BC ==
[~2022-10-13] VITALS: Ht 160 cm; Wt 82.9 kg
[2022-10-13 05:44] VITALS: BP 131/83
[2022-10-13] MEDS ORDERED: FERR-84 PO (06:10)
[2022-10-13] MEDS ORDERED: PREN-142 PO (06:10)
[2022-10-13 06:32] LABS: BILIRUBIN,URINE NEGATIVE (NEGATIVE); CLARITY,URINE CLEAR; COLOR,URINE YELLOW; GLUCOSE, URINE (UA) NEGATIVE (NEGATIVE); KETONES,URINE NEGATIVE (NEGATIVE); LEUKOCYTE ESTERASE ,URINE TRACE (NEGATIVE); NITRITE,URINE NEGATIVE (NEGATIVE); PH,URINE 6.5 (5-9); PROTEIN,URINE NEGATIVE (NEGATIVE)
[2022-10-13 06:55] LABS: BACTERIA,URINE LARGE /HPF
[2022-10-13] MEDS ORDERED: D5 LR IV SOLUTION 1,000 ML IV SCH ×2 (07:15→10:15)
[2022-10-13 07:40] VITALS: BP 123/82
[2022-10-13 11:30] VITALS: BP 121/82
== END 2022-10-13 12:25 | disposition home or self-care (01) ==
LOC: WSo 05:17 → LDRP 05:18 → WSo 12:25
PROVIDERS: ATTEND Obstetrics & Gynecology
DX: O62.9 Abnormality of forces of labor, unspecified (principal); Z3A.00 Weeks of gestation of pregnancy not specified
CPT/HCPCS: 81000; 87081; 87088; 96360; 96361; G0463; 99214

== ENCOUNTER 2022-10-23 16:15 | Outpatient (CLI) | payer BC ==
[~2022-10-23] VITALS: Ht 160 cm; Wt 86.0 kg
[~2022-10-23 16:15] MED LIST changes: +FERR-84 PO; +PREN-142 PO
[2022-10-23 16:45] VITALS: BP 133/81
--- NOTE | 2022-10-27 08:22 | Physician Query-Final Dx ---
TIO,10/27/22 0822: Clinic Account Progress/Dx Physician Query: Please give diagnosis Please include # weeks gestation Date of Service Oct 23, 2022 at 16:15 KYLIE ESQUIVEL MD 10/28/22 1401: Clinic Account Progress/Dx DIAGNOSIS: Diagnosis 36 weeks with false labor TIO,OctOct 27, 2022 08:22 KYLIE ESQUIVEL MD Oct 28, 2022 14:01
== END 2022-10-23 17:23 | disposition home or self-care (01) ==
LOC: WSo 16:15 → LDRP 16:15 → WSo 17:23
PROVIDERS: ATTEND Obstetrics & Gynecology
DX: O42.92 Full-term premature rupture of membranes, unspecified as to length of time between rupture and onset of labor (principal); Z3A.37 37 weeks gestation of pregnancy
CPT/HCPCS: 99213

== ENCOUNTER → 2022-11-03 | Outpatient (CLI) | payer BC ==
--- NOTE | 2022-11-03 16:43 | Diagnostic Imaging Report ---
INDICATION: Evaluate growth. TECHNIQUE: Multiple real-time grayscale images were obtained over the gravid uterus. COMPARISON: None. FINDINGS: There is a single live fetus in a cephalic presentation. heart rate was recorded at 147 BPM. Placenta is anterior. No previa is detected. Amniotic fluid index is 12.5 cm. A biophysical profile was performed. Overall biophysical profile score is normal at 8/8. Biometrical measurements are as follows: Biparietal 9.84 cm, age 40 weeks 3 days. Head circumference 35.05 cm, age 40 weeks 6 days. Abdominal circumference 38.02 cm, age 42 weeks 0 days. Femur length 7.09 cm, age 36 weeks 3 days. Sonographic estimate age: 40 weeks 0 days. Sonographic estimated date of delivery: 11/03/2022. Estimated Weight: 4143 gm (+/- 605 gm). LMP percentile: 97%. heart rate: 147 beats per minute. number: 1 of 1. IMPRESSION: 1. Single live IUP measuring approximately 40 weeks gestational age. 2. Biophysical profile score 8/8. Dictated by: Dictated on workstation # [id number]
== END ==
LOC: RAD FS 14:50
PROVIDERS: ATTEND Obstetrics & Gynecology
DX: O34.599 Maternal care for other abnormalities of gravid uterus, unspecified trimester (principal); Z3A.40 40 weeks gestation of pregnancy
CPT/HCPCS: 76805

== ENCOUNTER 2022-11-05 10:08 | Inpatient (IN) | payer BC, MEDICAID ==
[~2022-11-05] VITALS: Ht 160 cm; Wt 84.4 kg
[2022-11-05] VITALS (10 sets, daily range): BP systolic 107–140; BP diastolic 65–91
[2022-11-05] MEDS ORDERED: LIDOCAINE 1% INJ 20 ML VIAL IJ PRN (10:45)
[2022-11-05] MEDS ORDERED: MINERAL OIL 30 ML UDC TOP PRN (10:45)
[2022-11-05 11:01] LABS: BASOPHILS % (AUTO) 0 % (0-10); EOSINOPHILS # (AUTO) 0.1 10^3/uL (0.0-0.3); EOSINOPHILS % (AUTO) 1 % (0-10); HEMATOCRIT 39 % (35-52); HEMOGLOBIN 12.6 g/dL (11.5-16.0); LYMPHOCYTES # (AUTO) 1.2 10^3/uL (1.0-4.0); LYMPHOCYTES % (AUTO) 11 % (12-44); MEAN CORPUSCULAR HEMOGLOBIN 29 pg (25-34); MEAN CORPUSCULAR HGB CONC 33 g/dL (32-36); MEAN CORPUSCULAR VOLUME 88 fL (80-99); MEAN PLATELET VOLUME 11.7 fL (9.0-12.2); MONOCYTES # (AUTO) 0.7 10^3/uL (0.0-1.0); MONOCYTES % (AUTO) 6 % (0-12); NEUTROPHILS # (AUTO) 9.1 10^3/uL (1.8-7.8); NEUTROPHILS % (AUTO) 81 % (42-75); PLATELET COUNT 184 10^3/uL (130-400); WHITE BLOOD COUNT 11.2 10^3/uL (4.3-11.0)
[2022-11-05] MEDS: D5 LR IV SOLUTION 1,000 ML IV SCH ×2 (11:12→17:52)
[2022-11-05] MEDS ORDERED: DOCU-143 PO (11:26)
[2022-11-05] MEDS ORDERED: BUTORPHANOL INJ 2 MG/ML (STADOL) VIAL ONE ×2 (16:24→18:53)
[2022-11-05] MEDS ORDERED: BUTORPHANOL INJ 2 MG/ML (STADOL) VIAL IV ONE ×2 (16:30→19:00)
[2022-11-05] MEDS ORDERED: OXYTOCIN PRE-MIX DRIP 500 ML IV ONE (20:30)
--- NOTE | 2022-11-05 20:53 | History & Physical ---
History and Physical Date Seen by Provider: Nov 05, 2022 Time Seen by Provider: 20:50 This patient is a 27-year-old 1 female who is currently at 38+ weeks gestation. She presented in labor with cervix dilated 4 cm. She denies rupture membranes or bleeding. Her has been uncomplicated. Her GBS culture was negative. Allergies are none Medications are vitamins Medical social and surgical histories are per the antepartum record HEENT exam is normal Neck is supple with no lymphadenopathy no thyromegaly Abdomen is gravid soft nontender nondistended Extremities show no clubbing or cyanosis. There is no Homans' sign. Pelvic exam currently patient is at least 7 cm dilated essentially 100% effaced -1 to -2 station vertex presentation with an intact bag that is ruptured artificially releasing clear fluid. monitor shows a normal heart rate pattern with category 1 pattern and contractions about every 4 to 6 minutes Laboratory Tests Test 11/05/22 10:50 Range/Units White Blood Count 11.2 H 4.3-11.0 10^3/uL Red Blood Count 4.39 3.80-5.11 10^6/uL Hemoglobin 12.6 11.5-16.0 g/dL Hematocrit 39 35-52 % Mean Corpuscular Volume 88 80-99 fL Mean Corpuscular Hemoglobin 29 25-34 pg Mean Corpuscular Hemoglobin Concent 33 32-36 g/dL Red Cell Distribution Width 15.6 H 10.0-14.5 % Platelet Count 184 130-400 10^3/uL Mean Platelet Volume 11.7 9.0-12.2 fL Immature Granulocyte % (Auto) 1 % Neutrophils (%) (Auto) 81 H 42-75 % Lymphocytes (%) (Auto) 11 L 12-44 % Monocytes (%) (Auto) 6 0-12 % Eosinophils (%) (Auto) 1 0-10 % Basophils (%) (Auto) 0 0-10 % Neutrophils # (Auto) 9.1 H 1.8-7.8 10^3/uL Lymphocytes # (Auto) 1.2 1.0-4.0 10^3/uL Monocytes # (Auto) 0.7 0.0-1.0 10^3/uL Eosinophils # (Auto) 0.1 0.0-0.3 10^3/uL Basophils # (Auto) 0.0 0.0-0.1 10^3/uL Immature Granulocyte # (Auto) 0.1 0.0-0.1 10^3/uL Assessment and plan 38+ week intrauterine with spontaneous labor. Patient is tolerating her labor relatively well. Amniotomy has been performed we will observe for progress. If needed we will augment with Pitocin. We anticipate a vaginal delivery but would be prepared for delivery. Patient understands with the relatively high station after this duration of labor the potential for a C- section is likely slightly elevated. Time will tell 38-week and spontaneous labor Allergies and Home Medications Allergies Coded Allergies: No Known Drug Allergies (Unverified , 04/07/20) Patient Home Medication List Home Medication List Reviewed: Yes Docusate Sodium (Colace) 100 Mg Capsule, 100 MG PO DAILY, (Reported) Entered as Reported by: ANDREW ABRAMS on 11/05/22 1126 Last Action: New Order Ferrous Sulfate (Iron) 325 Mg (65 Mg Iron) Tablet, 325 MG PO DAILY, (Reported) Entered as Reported by: LOREN MEZA on 10/13/22609 Last Action: Reviewed Vit No.124/Iron/FA ( Vitamin Tablet) 27 Mg Iron-800 Mcg Tablet, 1 EACH PO DAILY, (Reported) Entered as Reported by: LOREN MEZA on 10/13/22609 Last Action: Reviewed KYLIE ESQUIVEL MD Nov 05, 2022 20:53
[2022-11-05] MEDS ORDERED: OXYTOCIN PRE-MIX DRIP 500 ML IV SCH (22:30)
[2022-11-05] MEDS ORDERED: fentaNYL 2 mcg/ml BUPIVA 0.125 100 ML ONE (23:39)
[2022-11-06] VITALS (39 sets, daily range): BP systolic 98–182; BP diastolic 55–119
[2022-11-06] MEDS ORDERED: fentaNYL 2 mcg/ml BUPIVA 0.125 100 ML EPI SCH (00:30)
[2022-11-06] MEDS ORDERED: diphenhydrAMINE 50 MG/ML INJ (BENADRYL) IV PRN (00:30)
[2022-11-06] MEDS ORDERED: METOCLOPRAMIDE INJ 10 MG/2 ML (REGLAN) IV PRN (00:30)
[2022-11-06] MEDS ORDERED: LACTATED RINGERS 1,000 ML IV SCH (00:30)
[2022-11-06] MEDS ORDERED: ONDANSETRON 4 MG/2 ML (SDV) Z0FRAN IV PRN (00:30)
[2022-11-06] MEDS ORDERED: NALOXONE 0.4 MG/ML 1 ML (NARCAN) VIAL IV PRN ×2 (00:30)
[2022-11-06] MEDS: D5 LR IV SOLUTION 1,000 ML IV SCH (00:32)
[2022-11-06] MEDS: CATHETER FLUSH 10 ML SYR IV SCH ×3 (00:33→06:07)
[2022-11-06] MEDS ORDERED: LIDOCAINE PF 2% 5 ML (XYLOCAINE) VIAL ONE (00:52)
[2022-11-06] MEDS ORDERED: KETOROLAC 30 MG/ML VIAL ONE (04:42)
[2022-11-06] MEDS: KETOROLAC 30 MG/ML VIAL IV SCH ×3 (04:45→17:07)
[2022-11-06] MEDS ORDERED: OXYTOCIN PRE-MIX DRIP 500 ML IV SCH (04:45)
[2022-11-06] MEDS ORDERED: IBUPROFEN 800 MG (MOTRIN) TAB PO SCH (04:45)
[2022-11-06] MEDS ORDERED: ONDANSETRON 4 MG/2 ML (SDV) Z0FRAN IVP PRN (04:45)
[2022-11-06] MEDS ORDERED: oxyCODONE/APAP 5/325MG (PERCOCET 5) TABLET PO PRN (04:45)
[2022-11-06] MEDS ORDERED: BENZOCAINE/MENTHOL (DERMOPLAST) 56 ML CAN TP PRN (04:45)
[2022-11-06] MEDS ORDERED: DIBUCAINE 1% OINTMENT 28 GM TUBE TOP PRN (07:30)
[2022-11-06] MEDS ORDERED: WITCH HAZEL(TUCKS) 40 EA JAR TOP PRN (07:30)
[2022-11-06] MEDS: DOCUSATE SODIUM 100 MG (COLACE) CAP PO SCH ×2 (09:06→21:29)
--- NOTE | 2022-11-06 09:45 | OB Labor & Delivery Record ---
Labor & Delivery This patient delivered by term spontaneous vaginal delivery of viable male with Apgars of 8 and 9 at 1 and 5 minutes respectively. Weight was 8 pounds 4 ounces time was 0404. The was bulb suctioned on completion of delivery. Umbilical cord went pulses was doubly clamped the father cut the cord the baby was passed to mom's abdomen. Delivery was accomplished over a second-degree perineal laceration under epidural augmented with local analgesia. Placenta delivered spontaneously Patti and was normal with a three-vessel cord. The cervix vagina rectum perineum were examined and found intact except for the second-degree perineal laceration that was repaired with a single suture of 3-0 Vicryl Rapide in usual manner to good hemostasis and good reapproximation. Sponge needle counts were correct on completion of the delivery and repair. Blood loss was around 250 cc. The patient tolerated the delivery well and remained in the LDR for recovery. The baby remained with the mom. KYLIE ESQUIVEL MD Nov 06, 2022 09:45
[2022-11-06] MEDS ORDERED: DOCU-143 PO (10:02)
[2022-11-06] MEDS ORDERED: OXYC1TAB87 PO (10:02)
[2022-11-06] MEDS ORDERED: IBUP-1780 PO (10:02)
--- NOTE | 2022-11-06 10:03 | Discharge Inst-Surgical ---
Discharge Inst-Surgical Depart Medication/Instructions New, Converted or Re-Newed RX: Transmitted to Pharmacy Consults/Follow Up Orders & Referrals Follow Up Appt: Call to make follow up appt. for patient in 6 weeks. Activity Per routine post vaginal delivery instructions. Diet as tolerated Patient may shower or tub bathe as desired. Activity Activity as Tolerated: No Diet Discharge Diet: No Restrictions KYLIE ESQUIVEL MD Nov 06, 2022 10:03
--- NOTE | 2022-11-06 11:01 | Anesthesia-Regional Post-Op ---
Regional Patient Condition Mental Status: Alert, Oriented x3 Circulation: Same as Pre-Op Headache: Absent Sensation: Full Recovery Motor Block: Absent Post Op Complications Complications None Follow Up Care/Instructions Patient Instructions None needed. Anesthesia/Patient Condition Patient is doing well, no complaints, stable vital signs, no apparent adverse anesthesia problems. No complications reported per nursing. ARGELIA RICHARDSON CRNA Nov 06, 2022 11:01
[2022-11-07 03:50] VITALS: BP 94/53
[2022-11-07] MEDS: IBUPROFEN 800 MG (MOTRIN) TAB PO SCH ×2 (05:51→14:35)
--- NOTE | 2022-11-07 09:45 | Progress Note ---
Standard Progress Note Progress Notes/Assess & Plan Date Seen by a Provider: Nov 07, 2022 Time Seen by a Provider: 09:44 Progress/Assessment & Plan This patient is without complaint. She is ambulating, voiding, tolerating oral intake well and has good pain control. Vital Signs Date Time Temp Pulse Resp B/P (MAP) Pulse Ox O2 Delivery O2 Flow Rate FiO2 11/07/22 03:50 36.0 82 16 94/53 (67) 97 Room Air 11/06/22 22:40 37.0 83 18 98/55 (69) 98 Room Air 11/06/22 17:00 36.4 88 18 116/66 (83) 97 Room Air 11/06/22 13:30 36.5 93 18 105/57 (73) 97 Room Air I & O 11/07/22 07:00 Intake Total 500 ml Balance 500 ml Vital signs are stable. Patient is afebrile. The abdomen is benign. Fundus is firm below the umbilicus and nontender. Extremities show no clubbing or cyanosis. There is no Homans' sign. Assessment and plan day #1 doing well. Plans for routine convalescent care Final Diagnosis 38-week spontaneous vaginal delivery KYLIE ESQUIVEL MD Nov 07, 2022 09:45
[2022-11-07] MEDS: DOCUSATE SODIUM 100 MG (COLACE) CAP PO SCH (14:34)
[2022-11-07 14:37] VITALS: BP 124/69
== END 2022-11-07 16:30 | disposition home or self-care (01) | DRG 807 ==
LOC: LDRP 10:08 → WSo 10:08 → LDRP 10:35
PROVIDERS: ADMIT Obstetrics & Gynecology; ATTEND Obstetrics & Gynecology
PROC: 10E0XZZ Delivery of Products of Conception, External Approach (ICD-10-PCS; principal; 2022-11-06)
PROC: 0KQM0ZZ Repair Perineum Muscle, Open Approach (ICD-10-PCS; 2022-11-06)
DX: O70.1 Second degree perineal laceration during delivery (principal); Z37.0 Single live birth; Z3A.38 38 weeks gestation of pregnancy
CPT/HCPCS: 36415; 85025; 86780; 86850; 86900; 86901; 99212